=== PATIENT | male | born 1975 | race African-American/Black ===

== ENCOUNTER 2016-09-13 18:16 | Emergency (ER) | payer SELFPAY ==
[2016-09-13 18:27] VITALS: BP 136/89
--- NOTE | 2016-09-13 20:04 | ER Document Report ---
HPI - HPI Pain Level: 5 Notes: Patient is a 41-year-old male presents to the ED complaining of right lower toothache 1 day. Patient also notes some swelling in his mouth. He has not noticed any discharge. He has had a decreased appetite. Patient has had issues with his teeth in the past. Patient states that he does not have a dentist appointment yet. He has not had any medications for his symptoms. He denies any med allergies, or any significant past medical history. The pain does not radiate. He has not noticed any facial swelling. Denies any headaches , fever, dizziness, ear pain, nasal congestion/discharge, sinus pain, postnasal drip, sore throat, dysphagia, dysphasia, cough, shortness of breath, wheeze, chest pain, palpitations, abdominal pain, nausea/vomiting/diarrhea, dysuria, numbness/tingling, or rash. - CONSTITUTIONAL Notes: REVIEW OF SYSTEMS: CONSTITUTIONAL : Denies fever, chills, or sweats. Denies recent illness. EENT: see hpi CARDIOVASCULAR: Denies chest pain. Denies palpitations or racing or irregular heart beat. Denies ankle edema. RESPIRATORY: Denies cough, cold, or chest congestion. Denies shortness of breath, difficulty breathing, or wheezing. GASTROINTESTINAL: Denies abdominal pain or distention. Denies nausea, vomiting , or diarrhea. Denies blood in vomitus, stools, or per rectum. Denies black, tarry stools. Denies constipation. GENITOURINARY: Denies difficulty urinating, painful urination, burning, frequency, blood in urine, or discharge. MUSCULOSKELETAL: Denies back or neck pain or stiffness. Denies joint pain or swelling. ALL OTHER SYSTEMS REVIEWED AND NEGATIVE. Dictation was performed using [employer] voice recognition software - DERM Skin Color: Normal Past Medical History - Social History Smoking Status: Unknown if Ever Smoked Family History: Malignancy Patient has suicidal ideation: No Patient has homicidal ideation: No Renal/ Medical History: Denies: Hx Peritoneal Dialysis - Immunizations Immunizations up to date: Yes Hx Diphtheria, Pertussis, Tetanus Vaccination: Yes Vertical Provider Document - CONSTITUTIONAL Notes: PHYSICAL EXAMINATION: GENERAL: Well-appearing, well-nourished and in no acute distress. HEAD: Atraumatic, normocephalic. EYES: Pupils equal round and reactive to light, extraocular movements intact, sclera anicteric, conjunctiva are normal. ENT: EAC clear b/l. TM's intact b/l without erythema, fluid, or perforation. Nares patent and without discharge. oropharynx clear without exudates. No tonsilar hypertrophy or erythema. Moist mucous membranes. No sinus tenderness. Mouth: Poor dentition throughout. + mild erythema, inflammation to the Rt lower jaw approx molars #[id number]. No discharge or obvious abscess noted. + tenderness to palpation. NECK: Normal range of motion, supple without lymphadenopathy. No rigidity. No ludwigs palpated. LUNGS: Breath sounds clear to auscultation bilaterally and equal. No wheezes rales or rhonchi. HEART: Regular rate and rhythm without murmurs, rubs, gallops. Extremities: No cyanosis, clubbing, or edema b/l. Peripheral pulses 2+. Capillary refill less than 3 seconds. NEUROLOGICAL: Cranial nerves grossly intact. Normal speech, normal gait. Normal sensory, motor exams PSYCH: Normal mood, normal affect. SKIN: Warm, Dry, normal turgor, no rashes or lesions noted. - INFECTION CONTROL TRAVEL OUTSIDE OF THE [place] IN LAST 30 DAYS: No - RESPIRATORY O2 Sat by Pulse Oximetry: 99 Course - Re-evaluation Re-evalutation: 09/13/16 21:53 Patient is an, afebrile, well-hydrated 40-year-old male presents with dental pain, questionable abscess/infection. Vitals are stable PE otherwise unremarkable. I will cover him with clindamycin twice a day for 10 days. Encourage healthy dental practices. Patient to schedule follow-up with a dentist within the next week. Recheck with his PCM this week as well. Return to the ED with any worsening/concerning symptoms as reviewed. Patient is in agreement. Low suspicion for any deep space infection (i.e. retropharyngeal abscess or jimbo's angina), meningitis, intracranial hemorrhage, or airway compromise. - Vital Signs Vital signs: Temp Pulse Resp BP Pulse Ox 99.4 F 54 L 20 136/89 H 99 09/13/16 18:26 09/13/16 18:26 09/13/16 18:26 09/13/16 18:26 09/13/16 18:26 Discharge - Discharge Clinical Impression: Toothache Condition: Stable Disposition: HOME, SELF-CARE Instructions: [facility], Toothache ([facility]), Clindamycin ([facility]) Additional Instructions: [place]/floss daily take meds as directed salt water gargles, peroxide rinses OTC meds as needed Schedule an appointment with a dentist* Recheck/establish with a PCM in 2-3 days Return to the ED with any worsening symptoms and/or development of fever, headache, facial swelling, trouble swallowing, chest pain, palpitations, syncope , shortness of breath, trouble breathing, abdominal pain, or other worsening symptoms that are concerning to you. Prescriptions: Clindamycin HCl [Cleocin 300 mg Capsule] 300 mg PO BID #20 capsule Forms: Elevated Blood Pressure Referrals: DENTISTRY [Provider Group] - Follow up as needed
== END 2016-09-13 20:14 | disposition home or self-care (01) ==
LOC: ER 18:16
DX: K08.89 Other specified disorders of teeth and supporting structures (principal); R63.0 Anorexia
CPT/HCPCS: 99282

== ENCOUNTER → 2019-10-06 | Outpatient (CLI) | payer SELFPAY ==
[2019-10-06 14:48] VITALS: BP 124/58
--- NOTE | 2019-10-06 14:48 | ER [facility] ASSESSMENT REPORT ---
Intake - In the Last 14 days Have you traveled outside [place]?: No Have you been in close contact with someone CONFIRMED: Yes Worked in Healthcare?: No - Symptoms Subjective Fever([place] feverish): No Chills: No Muscule Aches: No Runny Nose: No Sore Throat: No Cough (New or worsening chronic cough): No Shortness of breath: No Nausea or Vomiting: No Headache: No Abdominal Pain: No Diarrhea(3 or more loose stools in last 24 hours): No - Do you have any of the following Chronic lung disease: Asthma or emphysema or COPD: No Cystic Fibrosis: No Diabetes: No High Blood Pressure: No Cardiovascular Disease: No Chronic Kidney Disease: No Chronic Liver Disease: No Chronic blood disorder like Sickle Cell Disease: No Weak immune system due to disease or medication: No Neurologic condition that limits movement: No Developmental delay - Moderate to Severe: No Recent (within past 2 weeks) or current : No Morbid Obesity (>100 pounds over ideal weight): No - Objective Temperature: 98.7 F Pulse Rate: 68 Respiratory Rate: 18 Blood Pressure: 124/58 O2 Sat by Pulse Oximetry: 96 Objective: Given above, testing performed: If Testing Performed: Test Specimen Type Sent to General - General Information source: Patient Notes: Patient presents to the [facility] for screening for the coronavirus. Patient denies any symptoms but does have a recent positive exposure. Patient denies any chronic medical problems. - Related Data Allergies/Adverse Reactions: No Known Allergies Allergy (Verified 09/13/16 18:24) Past Medical History - General Information source: Patient - Social History Smoking Status: Never Smoker Family History: Malignancy - Medical History Medical History: Negative Renal/ Medical History: Denies: Hx Peritoneal Dialysis Surgical Hx: Negative Physical Exam - Notes Notes: The patient was evaluated during the global Covid 19 pandemic, and that diagnosis was suspected/considered upon their initial presentation. Their evaluation, treatment and testing was consistent with current guidelines for patients who present with complaints or symptoms that may be related to Covid 19. Full physical exam could not be performed due to covid 19 isolation protocols. Constitutional: Nontoxic appearance, no acute distress Eyes: Nonicteric, extraocular movements intact, sclera clear Cardiovascular: Heart rate and rhythm regular, no JVD Respiratory: Breath sounds clear bilaterally, nonlabored breathing, no use of accessory muscles, no tachypnea Gastrointestinal: Abdomen not distended Muculoskeletal: Moves all extremities well Skin: Normal color Neuro: Awake alert oriented, normal speech Psych: Normal mood and affect Diagnostic Results Laboratory Results: Patient presents with exposure worrisome for possible Covid 19. Patient does not have emergency worrying symptoms such as difficulty breathing, shortness of breath, chest pain, pressure, confusion or cyanosis. Patient appears suitable for discharge as they are not of an advanced age, do not have any chronic medical conditions such as diabetes, CAD, immune deficiency, chronic lung disease or chronic kidney disease. Patient's vital signs are stable and patient is nontoxic in appearance. Good return precautions have been discussed with patient, patient verbalized understanding and is agreeable with discharge plan of care at this time. Patient Education/Counseling Counseling/Education: Patient was provided with discharge information including: As a person under investigation for Covid 19, the [place] department of Health and Human Services, division of public health advises you to adhere to the following guidance until your test results are reported to you. If your test result is positive, you will receive additional information from your provider and your local health department at that time. Remain at home until you are cleared by the health provider or public health authorities. Keep a log of visitors to your home, notify any visitors to your home of your isolation status. If you plan to move to a new address or leave the [facility], notify the local health department in your County. Call your doctor or seek care if you have an urgent medical need. Before seeking medical care, call ahead to get instructions from the provider before arriving at the medical office clinic or hospital. Notify them that you are being tested for the virus that causes Covid 19 so that arrangements can be made, as necessary, to prevent transmission to others in the healthcare setting. Next, notify the local health department in your county. If a medical emergency arises and you need to call 911, inform the first responders that you are being tested for the virus that causes Covid 19. Next, notify the local health department in your county. [facility] Discharge - Discharge Clinical Impression: Encounter for screening laboratory testing for COVID-19 virus in asymptomatic patient Condition: Stable Disposition: Home; Selfcare
== END ==
LOC: RDC 14:12
PROVIDERS: ATTEND Nurse Practitioner Family
DX: Z20.828 Contact with and (suspected) exposure to other viral communicable diseases (principal)
CPT/HCPCS: 87635; C9803; 99201